=== PATIENT | female | born 1955 | race Caucasian/White ===

== ENCOUNTER 2016-05-14 16:05 | Emergency (ER) | payer OTHER ==
[2016-05-14 16:21] VITALS: BP 111/73; PULSE 71; RESP 18; TEMP 97.3; O2SAT 97
--- NOTE | 2016-05-14 16:30 | UCPHY ---
H & P Time Seen by Provider: 05/14/16 16:16 Patient Type: New HPI/ROS: CHIEF COMPLAINT: I have sinusitis HISTORY OF PRESENT ILLNESS: This is a 61-year-old female presents to the Urgent Care reporting symptoms of sinusitis. Patient reports sinus congestion, sinus discharge, facial pain, development of sore throat, and occasional cough. She also reports feeling achy. Frontal headache. No known fever. No chills. No significant cough. No sputum production. No ear pain. She has been taking DayQuil and NyQuil but none today. She says she gets sinus issues quite frequently. She reports using saline nasal sprays with no relief. No chest pain, shortness of breath, palpitations, vomiting, diarrhea, urinary complaints, lightheadedness. REVIEW OF SYSTEMS: Aside from elements discussed in the HPI, a comprehensive 10-point review of systems was reviewed and is negative. PAST MEDICAL HISTORY: Patient denies. SOCIAL HISTORY: New to [place], having recently moved here. Nonsmoker. VITAL SIGNS: see nurse's notes. GENERAL: Well-developed, well-nourished, in no acute distress. HEENT: Atraumatic Eyes: PERRL, EOMI, no conjunctival injection. Tenderness to palpation across the frontal sinuses, maxillary sinuses. Ears: TM clear bilaterally. Nose: No discharge. Mouth: moist mucous membranes. Pharynx: no erythema, no exudates, no swelling, no abscess. Uvula is midline. NECK: Supple, no adenopathy, no meningismus, no tenderness. Negative Kernig's and Brudzinski's. LUNGS: Clear to auscultation bilaterally, no wheezes, rhonchi or rales. CARDIAC: Regular rate and rhythm, no rubs, murmurs or gallops. ABDOMEN: Soft, nontender, bowel sounds normal. BACK: No CVA tenderness. EXTREMITIES: Normal, no edema, FROM. NEURO: Alert and oriented, grossly nonfocal. SKIN: Warm and dry, no rash. PSYCHIATRIC: Normal mentation, no agitation. Smoking Status: Never smoked Constitutional: Initial Vital Signs Temperature (C) 36.3 C 05/14/16 16:19 Heart Rate 71 05/14/16 16:19 Respiratory Rate 18 05/14/16 16:19 Blood Pressure 111/73 05/14/16 16:19 O2 Sat (%) 97 05/14/16 16:19 O2 Delivery Mode Room Air Allergies/Adverse Reactions: No Known Allergies Allergy (Unverified 05/14/16 16:17) Home Medications: Medication Instructions Recorded Amoxicillin Trihydrate 500 mg PO TID 7 Days 05/14/16 [Amoxicillin] Estrogen,Con/M-Progest Acet 05/14/16 Progesterone 05/14/16 Medical Decision Making ED Course/Re-evaluation: 61-year-old female presenting to Urgent Care reporting that she has a sinus infection. She states that these develop frequently. She has been ill for 6 days. Patient was instructed to obtain Flonase nasal spray, to consider using a decongestant, to continue using a Neti pot of saline washes. She was placed on amoxicillin for potential bacterial rhinosinusitis. Differential Diagnosis: Differential diagnosis of the patient's symptom complex was considered including but not limited to viral upper respiratory infection, sinusitis, otitis media, pharyngitis, influenza. Departure - Departure Disposition: Home, Routine, Self-Care Clinical Impression: Sinusitis Qualifiers: Sinusitis location: unspecified location Chronicity: acute Recurrence: non- recurrent Qualifier Code: (J01.90) Acute sinusitis, unspecified Condition: Good Instructions: Rhinosinusitis (ED) Additional Instructions: Mainstay of treatment for sinusitis is to keep the sinus passages open. Decongestants, Flonase nasal spray, and saline washes are all helpful to keep the sinus passages open. A decongestant will help to shrink the mucous membranes keep the sinus passages open. You can obtain a decongestant such as Sudafed or pseudoephedrine over-the -counter. I recommend Flonase nasal spray which will decrease the swelling of the mucous membranes. Saline nasal washes such as a Aurora pot are also frequently useful and keeping the sinus passages open. For headache pain or facial pain, We recommend Acetaminophen (Tylenol) and Ibuprofen (Motrin,Advil) for pain and fever control. When fever is high or pain severe, both drugs can be used at the same time, but at different intervals. Please note the time differences. Your dose is: Acetaminophen 650mg every 4 to 6 hours Ibuprofen 600 mg every 6-8 hours with food OR Naproxen Sodium (Aleve) 220 mg every 12 hours. Note: do not take Acetaminophen with Hydrocodone (Vicodin, Lortab) or Oycodone (Percocet). These medications also contain Acetaminophen. No more than 3000mg of Acetaminophen should be taken in 24 hours (for an adult). Please take antibiotic as directed. If not improving as expected with the above treatment, please return to urgent care or seek care with your primary care physician. Referrals: NONE *PRIMARY CARE P,. [Primary Care Provider] - As per Instructions Prescriptions: Amoxicillin Trihydrate [Amoxicillin] 500 mg PO TID 7 Days - PQRS PQRS Measurement: Not applicable
== END 2016-05-14 16:37 | disposition home or self-care (01) ==
LOC: CED 16:05
DX: J01.90 Acute sinusitis, unspecified (principal)
CPT/HCPCS: G0463-PO

== ENCOUNTER → 2016-09-02 | Outpatient (CLI) | payer OTHER | LOC: FIMAGING 11:55 | DX: Z12.31 Encounter for screening mammogram for malignant neoplasm of breast (principal) | CPT/HCPCS: G0202 ==

== ENCOUNTER → 2017-09-11 | Outpatient (CLI) | payer OTHER | LOC: FIMAGING 16:14 | PROVIDERS: ATTEND Internal Medicine | DX: Z12.31 Encounter for screening mammogram for malignant neoplasm of breast (principal) ==

== ENCOUNTER → 2017-10-03 | Outpatient (CLI) | payer OTHER | LOC: FIMAGING 14:12 | PROVIDERS: ATTEND Internal Medicine | DX: Z13.820 Encounter for screening for osteoporosis (principal) ==

== ENCOUNTER → 2018-09-16 | Outpatient (CLI) | payer OTHER | LOC: EMCIMAGING 14:31 ==